=== PATIENT | female | born 1965 | race Caucasian/White ===

== ENCOUNTER → 2017-03-23 | Outpatient (CLI) | payer BC ==
[~2017-03-23] MED LIST: CHOL20005 PO; FEXO1TAB45 PO; PSEU30TA20 PO
--- NOTE | 2017-03-24 15:15 | MAMMOGRAPHY REPORT ---
BILATERAL DIGITAL SCREENING MAMMOGRAM TOMOSYNTHESIS WITH CAD: 03/23/2017 CLINICAL HISTORY: Routine screening. Patient has no complaints. TECHNIQUE: Breast tomosynthesis in addition to standard 2D mammography was performed. Current study was also evaluated with a Computer Aided Detection (CAD) system. COMPARISON: Comparison is made to exams dated: 02/21/2016 mammogram, 07/09/2014 mammogram, 03/24/2013 m ammogram, 02/29/2012 mammogram, 10/07/2011 mammogram, and 03/19/2011 ultrasound - [facility]. BREAST COMPOSITION: There are scattered areas of fibroglandular density in both breasts. FINDINGS: There is a 6 mm nodular asymmetry in the superior, middle to anterior left breast, only se en on the MLO view but thought to project laterally based on the CC view. Although this could repres ent normal overlapping tissue, additional spot compression tomosynthesis views and possible ultrasoun d are recommended. No other suspicious mass, architectural distortion or cluster of microcalcifications is seen. IMPRESSION: ACR BI-RADS CATEGORY 0: INCOMPLETE EVALUATION: NEED ADDITIONAL IMAGING EVALUATION The 6 mm nodular asymmetry in the superior left breast needs additional evaluation. The patient will be called to schedule an appointment. Approximately 10% of breast cancers are not detected with mammography. A negative mammographic report should not delay biopsy if a clinically suggestive mass is present. Joann Jimenez M.D. ay/:03/24/2017 07:31:55 [employer] Erector: Nadya CISNEROS(Maria M)(Eliseo), [facility] letter sent: Addl Imaging 0 BI-RADS Code: ACR BI-RADS Category 0: Incomplete Evaluation: Need Additional Imaging Evaluation
== END | disposition home or self-care (01) ==
LOC: C.MAMM 09:32
PROVIDERS: ATTEND Physician Assistant Medical
DX: Z12.31 Encounter for screening mammogram for malignant neoplasm of breast (principal); R92.8 Other abnormal and inconclusive findings on diagnostic imaging of breast

== ENCOUNTER → 2017-04-06 | Outpatient (CLI) | payer BC ==
--- NOTE | 2017-04-07 14:12 | MAMMOGRAPHY REPORT ---
UNILATERAL LEFT DIGITAL DIAGNOSTIC MAMMOGRAM TOMOSYNTHESIS AND TARGETED LEFT ULTRASOUND: 04/06/2017 CLINICAL HISTORY: Callback from screening mammography for a 6 mm nodular asymmetry in the upper outer quadrant of the left breast. TECHNIQUE: Spot compression tomosynthesis left CC and MLO views were obtained. COMPARISON: Comparison is made to exams dated: 03/23/2017 mammogram, 02/21/2016 mammogram, 07/09/2014 m ammogram, 03/24/2013 mammogram, 02/29/2012 mammogram, and 10/07/2011 mammogram - [facility]. BREAST COMPOSITION: There are scattered areas of fibroglandular density in the left breast. FINDINGS: There is near-complete effacement of the nodular asymmetry in the upper outer middle one th ird of the left breast, with the additional supplemental spot compression tomosynthesis images. Ther e is no definite persistent mass, focal area of architectural distortion, asymmetry or suspicious karla rocalcifications. Further evaluation with ultrasound was performed in the superior left breast. Real-time high-resolution ultrasound was performed in the superior left breast. In the 12:00 axis, 4 cm from the nipple, there are thin tubular coiled hypoechoic and anechoic structures, measuring 7.9 x 5.4 mm, which could represent focal duct ectasia. No definite evidence of an intraductal mass. It is unclear if this correlates with the initial mammographic asymmetry. However, a short interval fo llow-up left diagnostic tomosynthesis mammogram and repeat targeted ultrasound is recommended to ensu re stability in 6 months. IMPRESSION: ACR-BI-RADS CATEGORY 3: PROBABLY BENIGN, TARGETED ULTRASOUND ACR-BI-RADS CATEGORY 3: PRO BABLY BENIGN There is near-complete effacement of the 6 mm nodular asymmetry with supplemental spot compression to mosynthesis images, and possible focal duct ectasia identified in the 12:00 left breast on ultrasound . A short interval follow-up left diagnostic tomosynthesis mammogram and repeat targeted ultrasound is recommended to ensure stability in 6 months. These results and recommendations were discussed with the patient at the time of the exam. Approximately 10% of breast cancers are not detected with mammography. A negative mammographic report should not delay biopsy if a clinically suggestive mass is present. Joann Jimenez M.D. ay/:04/06/2017 14:14:22 [employer] Worker: Kaylee CISNEROS(R)(M), [facility] letter sent: Follow Up Recommended 3 BI-RADS Code: ACR-BI-RADS Category 3: Probably Benign Ultrasound BI-RADS: ACR-BI-RADS Category 3: Pr obably Benign
== END | disposition home or self-care (01) ==
LOC: C.MAMM 12:30
PROVIDERS: ATTEND Physician Assistant Medical
DX: N64.89 Other specified disorders of breast (principal)

== ENCOUNTER → 2017-06-01 | Outpatient (CLI) | payer BC | END | disposition home or self-care (01) | LOC: C.PAPS 09:07 | PROVIDERS: ATTEND Physician Assistant | DX: Z01.419 Encounter for gynecological examination (general) (routine) without abnormal findings (principal) ==

== ENCOUNTER → 2017-07-01 | Outpatient (CLI) | payer BC ==
[2017-07-01 14:41] LABS: HEMATOCRIT 39.1 % (37-47); HEMOGLOBIN 13.7 g/dL (12.0-16.0); MEAN CELL VOLUME 92.4 fL (80-100); MEAN CORPUSCULAR HEMOGLOBIN 32.4 pg (25-34); MEAN PLATELET VOLUME 10.2 fL (7.4-10.4); PLATELET COUNT 265 K/uL (130-400); RED CELL DISTRIBUTION WIDTH SD 43.7 fL (36.4-46.3); WHITE BLOOD COUNT 5.02 K/uL (4.8-10.8)
== END | disposition home or self-care (01) ==
LOC: C.LAB1850 12:43
PROVIDERS: ATTEND Physician Assistant
DX: N92.6 Irregular menstruation, unspecified (principal)

== ENCOUNTER → 2017-07-23 | Outpatient (CLI) | payer BC | END | disposition home or self-care (01) | LOC: C.PATHSPEC 17:41 | PROVIDERS: ATTEND Obstetrics & Gynecology | DX: N92.6 Irregular menstruation, unspecified (principal) ==